=== PATIENT | male | born 1970 | race African-American/Black ===

== ENCOUNTER 2018-02-09 21:07 | Emergency (ER) | payer MEDICAID ==
[~2018-02-09] VITALS: Ht 180.3 cm; Wt 106.8 kg
[2018-02-09] MEDS ORDERED: KETOROLAC TROMETHAMINE 30 MG/ML VIAL IM ONE (22:15)
[2018-02-09] MEDS ORDERED: LIDOCAINE 5% TRANSDERMAL PATCH TD ONE ×2 (22:15→23:00)
[2018-02-09] MEDS ORDERED: METHOCARBAMOL 500 MG TABLET PO ONE (22:15)
[2018-02-09 22:59] VITALS: BP 143/96
== END 2018-02-09 23:04 | disposition home or self-care (01) ==
LOC: EMS 21:08
DX: M54.2 Cervicalgia (principal); M54.6 Pain in thoracic spine; I10 Essential (primary) hypertension; M19.90 Unspecified osteoarthritis, unspecified site; F17.210 Nicotine dependence, cigarettes, uncomplicated; Z98.890 Other specified postprocedural states; V49.9XXA Car occupant (driver) (passenger) injured in unspecified traffic accident, initial encounter; Y93.89 Activity, other specified; Y92.89 Other specified places as the place of occurrence of the external cause; Y99.8 Other external cause status
CPT/HCPCS: 96372; 99284; J1885

== ENCOUNTER 2024-05-19 20:02 | Emergency (ER) | payer MEDICAID ==
[~2024-05-19] VITALS: Ht 185.4 cm; Wt 95.0 kg
[2024-05-19 20:09] VITALS: TEMP 98
[2024-05-19 21:00] LABS: BASOPHILS % (AUTO) 0.5 % (0.0-2.0); EOSINOPHILS % (AUTO) 1.1 % (1.0-6.0); HEMATOCRIT 44.4 % (41-53); HEMOGLOBIN 14.2 g/dL (13.5-17.5); LYMPHOCYTES # (AUTO) 1.3 K/uL (1.0-4.8); MEAN CORPUSCULAR HEMOGLOBIN 29.6 pg (26.0-34.0); MEAN CORPUSCULAR VOLUME 92 fL (80-100); MONOCYTES # (AUTO) 0.5 K/uL (0.1-1.0); MONOCYTES % (AUTO) 11.6 % (2.0-9.0); NEUTROPHILS # (AUTO) 2.7 K/uL (1.8-7.7); NEUTROPHILS % (AUTO) 57.8 % (40.0-70.0); PLATELET COUNT (AUTO) 285 K/uL (150-450); RED CELL DISTRIBUTION WIDTH 15.6 % (11.5-14.5); WHITE BLOOD COUNT (AUTO) 4.6 K/uL (4.5-11.0)
[2024-05-19 21:07] LABS: ANION GAP 2 mmol/L (8-16); CALCIUM, TOTAL 7.7 mg/dL (8.8-10.5); CARBON DIOXIDE 28 mmol/L (22-29); CHLORIDE 102 mmol/L (98-107); CREATININE 1.39 mg/dL (0.60-1.30); GLOMERULAR FILTR. RATE CALC > 60 mL/min (>60); GLUCOSE,RANDOM 130 mg/dL (70-110); POTASSIUM 4.5 mmol/L (3.5-5.1); SODIUM SERUM 132 mmol/L (136-145); UREA NITROGEN, BLOOD 8 mg/dL (7-18)
[2024-05-19 21:39] LABS: TROPONIN I-HIGH SENSITIVITY Less Than 4 ng/L (<76)
[2024-05-19 22:21] VITALS: BP 128/91; PULSE 75; RESP 20; O2SAT 95
== END 2024-05-19 22:48 | disposition home or self-care (01) ==
LOC: EMS 20:02
DX: R55 Syncope and collapse (principal); I10 Essential (primary) hypertension; F17.210 Nicotine dependence, cigarettes, uncomplicated; Z90.89 Acquired absence of other organs
CPT/HCPCS: 80048; 83880; 84484; 85025; 93005; 99284